=== PATIENT | female | born 1930 | race Caucasian/White ===

== ENCOUNTER 2016-10-19 23:37 | Inpatient (IN) | payer MEDICARE, MEDICAID ==
[~2016-10-19] VITALS: Ht 144.8 cm; Wt 61.2 kg
[2016-10-20] MEDS ORDERED: ASPIRIN 81MG TABLET PO STA (00:55)
[2016-10-20] MEDS ORDERED: NITROGLYCERIN 0.4MG TABLET SL SL PRN (01:00)
[2016-10-20 01:28] LABS: EOSINOPHILS % 1.3 % (0.0-5.0); HEMATOCRIT. 35.9 % (36.0-48.0); HEMOGLOBIN. 12.1 g/dL (12.0-16.0); LYMPHOCYTES % 43.7 % (20.0-50.0); MEAN CORPUSCULAR HEMOGLOBIN 27.9 pg (28.0-32.0); MEAN CORPUSCULAR VOLUME 82.9 fL (81.0-99.0); MEAN PLATELET VOLUME 8.1 fl (7.4-10.4); MONOCYTES % 8.7 % (2.0-8.0); NEUTROPHILS % 45.3 % (40.0-76.0); PLATELET 191 x1000/uL (130-400); RED BLOOD CELL COUNT 4.34 mill/uL (4.2-5.4); RED CELL DISTRIBUTION WIDTH 14.6 % (11.6-14.6)
[2016-10-20] MEDS ORDERED: DOCUSATE SODIUM 100MG CAPSULE PO PRN (01:30)
[2016-10-20] MEDS ORDERED: NA PHOS,M-B/NA PHOS,DI-BA ENEMA 118ML PR PRN (01:30)
[2016-10-20] MEDS ORDERED: HYDROMORPHONE HCL/PF 2MG/ML CPJ IV PRN (01:30)
[2016-10-20] MEDS ORDERED: ACETAMINOPHEN 325MG TABLET PO PRN (01:30)
[2016-10-20] MEDS ORDERED: IPRATROPIUM/ALBUTEROL 0.5-3(2.5)MG/3ML NEB INH PRN (01:30)
[2016-10-20] MEDS ORDERED: LORAZEPAM 2MG/ML CPJ IV PRN (01:30)
[2016-10-20] MEDS ORDERED: HYDROCODONE/ACETAMINOPHEN 5/325MG TABLET PO PRN (01:30)
[2016-10-20] MEDS ORDERED: GUAIFENESIN 200MG/10ML SUGAR FREE UDC PO PRN (01:30)
[2016-10-20] MEDS ORDERED: DIPHENHYDRAMINE 50MG/ML VIAL IV PRN (01:30)
[2016-10-20] MEDS ORDERED: CLONIDINE 0.1MG TABLET PO PRN (01:30)
[2016-10-20] MEDS ORDERED: MAGNESIUM/ALUMINUM HYDROXIDE/SIMETHICONE 30ML UDC PO PRN (01:30)
[2016-10-20] MEDS ORDERED: ONDANSETRON HCL 4MG/2ML VIAL IV PRN (01:30)
[2016-10-20 01:37] LABS: CARBON DIOXIDE 25 mEq/L (21-32); CHLORIDE 103 mEq/L (98-107); TROPONIN I < 0.02 ng/mL (0.00-0.04)
[2016-10-20] MEDS ORDERED: DEXTROSE 50% WATER 50ML SYRINGE IV PRN (05:00)
[2016-10-20] MEDS: BLOOD SUGAR DIAGNOSTIC STRIP TEST SCH ×4 (05:56→20:17)
[2016-10-20] MEDS: INSULIN LISPRO 100 UNITS/ML SUBCUT SCH ×4 (06:38→20:42)
[2016-10-20] MEDS ORDERED: MELO-106 PO (07:00)
[2016-10-20] MEDS ORDERED: SIMV40TA5 PO (07:00)
[2016-10-20] MEDS ORDERED: METF850T2 PO (07:00)
[2016-10-20] MEDS ORDERED: VALS160T2 PO (07:00)
[2016-10-20] MEDS ORDERED: BACL-141 PO (07:00)
[2016-10-20] MEDS: ASPIRIN 81MG EC TABLET PO SCH (08:14)
[2016-10-20] MEDS: ENOXAPARIN 30MG/0.3ML SYR SUBCUT SCH ×2 (08:15→20:14)
[2016-10-20 16:44] LABS: CREATINE KINASE 101 IU/L (26-192); CREATINE KINASE MB FRACTION 0.9 ng/mL (0.5-3.6); TROPONIN I < 0.02 ng/mL (0.00-0.04)
[2016-10-20 23:44] LABS: CREATINE KINASE 108 IU/L (26-192); CREATINE KINASE MB FRACTION 1.3 ng/mL (0.5-3.6); TROPONIN I < 0.02 ng/mL (0.00-0.04)
[2016-10-21] MEDS: INSULIN LISPRO 100 UNITS/ML SUBCUT SCH ×4 (05:55→21:27)
[2016-10-21] MEDS: BLOOD SUGAR DIAGNOSTIC STRIP TEST SCH ×4 (05:55→21:24)
[2016-10-21 06:31] LABS: EOSINOPHILS % 1.4 % (0.0-5.0); HEMATOCRIT. 37.6 % (36.0-48.0); HEMOGLOBIN. 12.6 g/dL (12.0-16.0); LYMPHOCYTES % 42.4 % (20.0-50.0); MEAN CORPUSCULAR HEMOGLOBIN 27.9 pg (28.0-32.0); MEAN CORPUSCULAR VOLUME 83.2 fL (81.0-99.0); MEAN PLATELET VOLUME 8.3 fl (7.4-10.4); NEUTROPHILS % 44.2 % (40.0-76.0); PLATELET 202 x1000/uL (130-400); RED BLOOD CELL COUNT 4.52 mill/uL (4.2-5.4); RED CELL DISTRIBUTION WIDTH 14.6 % (11.6-14.6)
[2016-10-21 07:03] LABS: CARBON DIOXIDE 27 mEq/L (21-32); CHLORIDE 105 mEq/L (98-107); CREATINE KINASE 225 IU/L (26-192); HDL CHOLESTEROL 65 mg/dL (40-59); LDL CHOLESTEROL 91 mg/dL (5-100); T4 FREE 0.95 ng/dL (0.76-1.46); TROPONIN I < 0.02 ng/mL (0.00-0.04)
[2016-10-21] MEDS: ENOXAPARIN 30MG/0.3ML SYR SUBCUT SCH (09:15)
[2016-10-21] MEDS: ASPIRIN 81MG EC TABLET PO SCH (09:15)
[2016-10-21] MEDS ORDERED: SODIUM CHLORIDE 0.9% 1,000 ML IV SCH (10:15)
[2016-10-22] MEDS: BLOOD SUGAR DIAGNOSTIC STRIP TEST SCH (06:15)
[2016-10-22] MEDS: INSULIN LISPRO 100 UNITS/ML SUBCUT SCH (06:15)
[2016-10-22] MEDS ORDERED: ENOXAPARIN 30MG/0.3ML SYR SUBCUT SCH (09:00)
[2016-10-22] MEDS: ASPIRIN 81MG EC TABLET PO SCH (09:08)
[2016-10-22 10:48] VITALS: BP 124/81
== END 2016-10-22 11:25 | disposition home or self-care (01) | DRG 243 ==
LOC: ER 23:37 → 5WST 10-20 01:03 → ENRESERV 10-20 02:27
PROVIDERS: ADMIT Internal Medicine; ATTEND Internal Medicine
DX: K21.9 Gastro-esophageal reflux disease without esophagitis (principal); G93.41 Metabolic encephalopathy; E46 Unspecified protein-calorie malnutrition; I11.0 Hypertensive heart disease with heart failure; I50.9 Heart failure, unspecified; R55 Syncope and collapse; E11.9 Type 2 diabetes mellitus without complications; D64.9 Anemia, unspecified; E78.5 Hyperlipidemia, unspecified; M54.12 Radiculopathy, cervical region; E78.00 Pure hypercholesterolemia, unspecified; I25.10 Atherosclerotic heart disease of native coronary artery without angina pectoris; M54.2 Cervicalgia; Z79.84 Long term (current) use of oral hypoglycemic drugs; Z79.899 Other long term (current) drug therapy; Z68.29 Body mass index [BMI] 29.0-29.9, adult
CPT/HCPCS: 36415; 71010; 72125; 80048; 80053; 80061; 82550; 82553; 82962; 83036; 83880; 84439; 84443; 84484; 85025; 85379; 93005; 93306; 93970; 99285; J1650; J1815; J7030